=== PATIENT | male | born 1960 | race Caucasian/White ===

== ENCOUNTER 2022-11-07 23:24 | Emergency (ER) | payer OTHER ==
[~2022-11-07] VITALS: Ht 167.6 cm; Wt 63.5 kg
[2022-11-07 23:27] VITALS: BP 159/93; PULSE 88; RESP 16; O2SAT 99
[2022-11-07] MEDS ORDERED: ACETAMINOPHEN 325MG TABLET PO ONE (23:30)
[2022-11-07] MEDS ORDERED: INDOMETHACIN 25MG CAPSULE PO ONE (23:30)
[2022-11-07] MEDS ORDERED: COLCHICINE 0.6MG TABLET PO ONE (23:45)
[2022-11-08 00:05] VITALS: TEMP 98.5
[2022-11-08] MEDS ORDERED: INDO-13 MT (00:51)
[2022-11-08] MEDS ORDERED: COLC0.6C3 MT (00:51)
== END 2022-11-08 00:47 | disposition left against medical advice (07) ==
LOC: ER 23:52
DX: M10.9 Gout, unspecified (principal); E11.65 Type 2 diabetes mellitus with hyperglycemia; M25.571 Pain in right ankle and joints of right foot; M79.672 Pain in left foot
CPT/HCPCS: 36415; 73610; 84550; 99284